=== PATIENT | female | born 1975 | race Caucasian/White ===

== ENCOUNTER 2017-04-15 14:55 | Emergency (ER) | payer OTHER ==
[2017-04-15 15:08] VITALS: PULSE 82; RESP 20; TEMP 98.6
[2017-04-15] MEDS ORDERED: ASPIRIN 81 MG CHEWABLE TAB PO ONE (15:30)
--- NOTE | 2017-04-15 15:37 | EDPHY ---
H & P Stated Complaint: 2 months of right side "lung pain" Time Seen by Provider: 04/15/17 15:16 HPI/ROS: This patient complains of "lung pain ". She describes location is "under the ribs under the right breast ". She states that she has had a chronic cough for 8 weeks and that the pain started sometime over the past 6 weeks or so. She describes this as achy in nature baseline 5/10 intensity and up to 9/10 intensity with a cough for a deep breath. She reports partial relief from ibuprofen and notes no other associated symptoms. She explains that initially the affected area of pain was relatively small but the area has increased in size over the past week or so. She has associated dyspnea and dyspnea on exertion. She also reports nasal congestion. Patient also complains of worsening of her chronic back pain in the thoracic area is concerned about potential failure of her lumbar fusion as she reports a feeling of buckling in the upper to mid lumbar area with bending forward and feeling of crepitance to the same area that is new for her. 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 She also has slight increase in her chronic pain in her thoracic spine and wants to check her T5-T11 fusion. ROS: No high fevers or chills. Mild fatigue. No other constitutional symptoms HEENT: Mild nasal congestion. No sore throat or ear pain. Pulmonary: As per HPI. No hemoptysis. Cardiovascular: No heart palpitations or lightheadedness. No leg swelling or pain. GI: She reports the right lower chest pain seems to increase when she over eats. However she denies any belly pain. No nausea vomiting or diarrhea. : Irregular menses that she attributes to her Mirena ring. No vaginal discharge or dysuria. Neuro: The patient reports a feeling of "nerve pain sharp in tingling at the area of thoracic back pain. This does not radiate from her back. No bowel or bladder incontinence. No extremity weakness. Complete review of symptoms is otherwise negative. Source: Patient Exam Limitations: No limitations - Personal History Current Tetanus Diphtheria and Acellular Pertussis (TDAP): Yes Tetanus Vaccine Date: WITHI 10 Y - Medical/Surgical History PMH: History of scoliosis with back fusion. Cholecystitis with cholecystectomy Chronic back pain T5 through T11 fusion by Dr. Washington in 2011 Hx Asthma: No Hx Chronic Respiratory Disease: No Hx Diabetes: No Hx Cardiac Disease: No Hx Renal Disease: No Hx Cirrhosis: No Hx Alcoholism: No Hx HIV/AIDS: No Hx Splenectomy or Spleen Trauma: No Other PMH: chronic pain due to a spinal fusion, appy, gallbladder, spinal fusion x2. 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 Eyes: Pupils equal and round no pallor or injection. ENT, Mouth: Mucous membranes moist. Respiratory: Bilateral mild wheezing with rhonchi at the right base. Cardiovascular: Regular rate and rhythm. No murmur gallop rub. No peripheral edema, calf swelling or tenderness Gastrointestinal: Abdomen is soft and nontender, no masses, bowel sounds normal. Back: Large midline surgical scar with midline thoracic tenderness that is mild. Patient also has lumbar tenderness around the L2-3 region in the midline. She has limited range of motion for flexion due to pain. Neurological: GCS 15. She maintains 5/5 strength all 4 extremities and no light touch sensory deficits upper lower extremities. No saddle anesthesia. Skin: Warm and dry, no rashes. Musculoskeletal: Neck is supple nontender. Extremities are symmetrical, full range of motion. Psychiatric: Mood and affect normal DIFFERENTIAL DIAGNOSIS: After history and physical exam differential diagnosis was considered for pulmonary embolism, pneumonia, bronchitis, ischemic heart disease, chronic thoracic back pain, hardware failure, degenerative disc disease , bony abnormality ,fracture Constitutional: Initial Vital Signs Temperature (C) 37 C 04/15/17 15:02 Heart Rate 82 04/15/17 15:02 Respiratory Rate 20 04/15/17 15:02 Blood Pressure 147/90 H 04/15/17 15:02 O2 Sat (%) 93 04/15/17 15:02 O2 Delivery Mode Room Air Allergies/Adverse Reactions: No Known Allergies Allergy (Verified 04/15/17 15:07) Home Medications: Medication Instructions Recorded Albuterol Hfa Anes Only [Proair 2 puffs IH Q4 PRN #1 mdi 04/15/17 Hfa Icu (*)] Azithromycin [Zithromax] 250 mg PO DAILY #6 tab 04/15/17 Fluticasone Hfa 220 Mcg [Flovent 2 puffs IH DAILY #1 mdi 04/15/17 220 MCG Hfa MDI (*)] Methocarbamol [Robaxin 750 mg (*)] 750 - 1,500 mg PO QID PRN #30 tab 04/15/17 Medical Decision Making - Diagnostics EKG Interpretation: 12 lead EKG performed at 3:37 p.m. reveals sinus rhythm at 76 Intervals: Normal throughout [place]: Normal throughout ST segments: Normal throughout Overall assessment sinus rhythm without acute ischemic abnormalities by my interpretation. For complete read please refer to trace master. Imaging Results: Thoracic spine x-rays: Read by the radiologist prior to my review also reviewed by myself-hardware in place without evidence of hardware failure. No acute bony abnormalities Two view chest x-ray: Read by radiologist prior to my review. No acute infiltrates. Mild airway disease. No other abnormalities appreciated. Two-view lumbar spine x-rays are reviewed with Dylon Rowell-radiologist while there is minimal anterior narrowing at L1 he feels this is within normal limits rather than representing a compression fracture. There is worsening of L2-3 spondylolisthesis when compared to prior lumbar spine film. She has multilevel degenerative disc disease as well. Imaging: Discussed imaging studies w/ auto claims adjuster Radiologist ED Course/Re-evaluation: Aspirin 324 IV, labs, EKG Review of her labs reveals normal CBC, chemistries, normal D-dimer and troponin. Discussion: Patient presents with clinical findings consistent with bronchitis associated with pleuritic sounding pain the likely represents pleurisy. We ruled out pulmonary embolism effectively with a negative D-dimer this patient with low risk of PE. Another possibility of her chest pain would be radiculopathy from a spinal sore spent think this is unlikely given the pleuritic nature of the pain. We ruled out pneumonia with normal CBC and chest x-ray. After review of her EKG and normal troponin I do not think she has ischemic cardiac disease contributing to her chest symptoms. Thoracic spine hardware is intact without acute abnormalities. Her spondylolisthesis at L2-3 has worsened and I suspect this is the cause of her feeling of crepitance in her low back and feeling of mild instability. Rather than pursuing further images of her lumbar spine this time will refer her to Dr. Washington-her neurosurgeon a performed her thoracic spine surgery. No evidence of cauda equina or other concerning acute findings. Will treat the patient with macrolide antibiotic, albuterol inhaler and given her long smoking history prior to quitting, Flovent steroid inhaler if her symptoms do not resolve on albuterol over the next week. A prescribed methocarbamol muscle relaxant to take in addition to NSAIDs and Tylenol for her back symptoms. - Data Points Laboratory Results: Laboratory Results 04/15/17 Unknown 04/15/17 Unknown Medications Given: Discontinued Medications Aspirin (Aspirin) 324 mg PO EDNOW ONE Stop: 04/15/17 15:31 Last Admin: 04/15/17 16:17 Dose: 324 mg Departure - Departure Disposition: Home, Routine, Self-Care Clinical Impression: Pleurisy, Spondylolisthesis at L2-L3 level Acute bronchitis Qualifiers: Bronchitis organism: unspecified organism Qualified Code(s): J20.9 - Acute bronchitis, unspecified Chronic thoracic back pain Qualifiers: Back pain laterality: midline Qualified Code(s): M54.6 - Pain in thoracic spine ; G89.29 - Other chronic pain; G89.29 - Other chronic pain Condition: Good Instructions: Pleurisy (ED), Acute Bronchitis (ED), Thoracic Pain (ED) Additional Instructions: Diagnoses: 1. Pleurisy 2. Acute bronchitis 3. Chronic thoracic back pain 4. Worsening spondylolisthesis at L2-3 Plan: Humidifier Albuterol inhaler with spacer for cough, wheeze or shortness of breath Zithromax antibiotic Flovent steroid inhaler-start this if your cough does not resolve over the next week with above treatment plan. Take this in addition to the albuterol and continue for 10-14 days. For back [id number] mg per 6 hours as needed for pain Methocarbamol muscle relaxant in addition if needed Tylenol in addition if needed. Call Dr. Washington to arrange follow-up appointment for further evaluation of your back. Referrals: Saurabh Washington MD [Medical Doctor] - As per Instructions Prescriptions: Albuterol Hfa Anes Only [Proair Hfa Icu (*)] 2 puffs IH Q4 PRN #1 mdi PRN Reason: Wheezing Azithromycin [Zithromax] 250 mg PO DAILY #6 tab Fluticasone Hfa 220 Mcg [Flovent 220 MCG Hfa MDI (*)] 2 puffs IH DAILY #1 mdi Methocarbamol [Robaxin 750 mg (*)] 750 - 1,500 mg PO QID PRN #30 tab PRN Reason: Muscle Spasms
--- NOTE | 2017-04-15 15:38 | CPEKG ---
Heart Rate: 76 RR Interval: 789 P-R Interval: 176 QRSD Interval: 94 QT Interval: 368 QTC Interval: 414 P [place]: 82 QRS [place]: 77 T Wave [place]: 43 EKG Severity - BORDERLINE ECG - EKG Impression: SINUS RHYTHM EKG Impression: PROBABLE LEFT ATRIAL ABNORMALITY Electronically Signed By: Maldonado Gandhi 15-Apr-2017 16:29:56
[2017-04-15 15:54] LABS: % IMMATURE GRANULYOCYTES 0.1 % (0.0-1.1); ABSOLUTE IMMATURE GRANULOCYTES 0.01 10^3/uL (0.00-0.10); ADD DIFF? NO; ADD MORPH? NO; ADD SCAN? NO; ATYPICAL LYMPHOCYTE FLAG 0 (0-99); FRAGMENT RBC FLAG 0 (0-99); HEMATOCRIT 41.1 % (38.0-47.0); HEMOGLOBIN 14.7 g/dL (12.6-16.3); LEFT SHIFT FLG 0 (0-99); LIPEMIA HEMOLYSIS FLAG 90 (0-99); MEAN CELL HEMOGLOBIN 31.5 pg (27.9-34.1); MEAN CELL HEMOGLOBIN CONCENTR. 35.8 g/dL (32.4-36.7); MEAN PLATELET VOLUME 9.5 fL (8.7-11.7); PLATELET CLUMPS FLAG 0 (0-99); PLATELET COUNT 249 10^3/uL (150-400); RED BLOOD CELL COUNT 4.67 10^6/uL (4.18-5.33); RED CELL DISTRIBUTION WIDTH 12.7 % (11.5-15.2)
[2017-04-15 16:15] LABS: ALANINE AMINOTRANSFERASE 32 IU/L (9-52); ALBUMIN 3.9 g/dL (3.5-5.0); ALKALINE PHOSPHATASE 79 IU/L (38-126); ANION GAP 11 mEq/L (8-16); ASPARTATE AMINOTRANSFERASE 19 IU/L (14-46); BILIRUBIN,TOTAL 0.4 mg/dL (0.1-1.4); CALCIUM 9.1 mg/dL (8.5-10.4); CARBON DIOXIDE 27 mEq/l (22-31); CHLORIDE 100 mEq/L (97-110); CREATININE 0.8 mg/dL (0.6-1.0); GLOMERULAR FILTRATION RATE > 60; GLUCOSE 92 mg/dL (70-100); POTASSIUM 3.9 mEq/L (3.5-5.2); SODIUM 138 mEq/L (134-144); TOTAL PROTEIN 6.4 g/dL (6.3-8.2)
[2017-04-15 16:28] LABS: TROPONIN I < 0.012 ng/mL (0.000-0.034)
[2017-04-15 17:43] VITALS: BP 147/105; O2SAT 95
== END 2017-04-15 17:40 | disposition home or self-care (01) ==
LOC: CED 14:55
DX: J20.9 Acute bronchitis, unspecified (principal); M43.16 Spondylolisthesis, lumbar region; M54.6 Pain in thoracic spine; G89.29 Other chronic pain; R09.1 Pleurisy; Z87.891 Personal history of nicotine dependence
CPT/HCPCS: 71020-PO; 72072-PO; 72100-PO; 80053-PO; 84484-PO; 85025-PO; 85378-PO

== ENCOUNTER 2017-09-04 12:10 | Emergency (ER) | payer OTHER ==
[2017-09-04] MEDS ORDERED: IBUPROFEN 800 MG TAB PO ONE (12:23)
--- NOTE | 2017-09-04 12:42 | EDPHY ---
H & P Time Seen by Provider: 09/04/17 12:17 HPI/ROS: CHIEF COMPLAINT: Left foot pain HISTORY OF PRESENT ILLNESS: 42-year-old female presents with left foot pain. She accidentally dropped a heavy object onto her left 1st toe this morning. Continues to have moderate 1st toe pain. Associated with tingling in toes. ROS: No weakness, bleeding, syncopal episode, other injury. Past Medical/Surgical History: Chronic LBP Appendectomy Cholecystectomy Smoking Status: Former smoker Physical Exam: Alert and oriented, pleasant Extremities: left first toe: tenderness and swelling over the distal phalanyx, subungual hematoma 20% Skin: intact Neuro: Motor and sensory intact Vascular: Capillary refill brisk distally Constitutional: Initial Vital Signs Heart Rate 75 09/04/17 12:17 Respiratory Rate 18 09/04/17 12:17 Blood Pressure 131/80 H 09/04/17 12:17 O2 Sat (%) 95 09/04/17 12:17 O2 Delivery Mode Room Air Allergies/Adverse Reactions: No Known Allergies Allergy (Verified 04/15/17 15:07) Home Medications: Medication Instructions Recorded Albuterol Hfa Anes Only [Proair 2 puffs IH Q4 PRN #1 mdi 04/15/17 Hfa Icu (*)] Azithromycin [Zithromax] 250 mg PO DAILY #6 tab 04/15/17 Fluticasone Hfa 220 Mcg [Flovent 2 puffs IH DAILY #1 mdi 04/15/17 220 MCG Hfa MDI (*)] Methocarbamol [Robaxin 750 mg (*)] 750 - 1,500 mg PO QID PRN #30 tab 04/15/17 Medical Decision Making - Diagnostics Imaging Results: X-ray independently reviewed by me reveals a nondisplaced fracture of the distal phalanx, 1st toe. ED Course/Re-evaluation: Nail trepination using electrocautery. Toes amarilys taped and post op shoe placed. - Data Points Medications Given: Discontinued Medications Ibuprofen (Motrin) 800 mg PO EDNOW ONE Stop: 09/04/17 12:24 Last Admin: 09/04/17 12:26 Dose: 800 mg Departure - Departure Disposition: Home, Routine, Self-Care Clinical Impression: Toe fracture, left Qualifiers: Encounter type: initial encounter Toe: great toe Fracture type: closed Phalanx : distal Fracture alignment: nondisplaced Qualified Code(s): S92.425A - Nondisplaced fracture of distal phalanx of left great toe, initial encounter for closed fracture Subungual hematoma of great toe of left foot Qualifiers: Encounter type: initial encounter Qualified Code(s): S90.212A - Contusion of left great toe with damage to nail, initial encounter Condition: Good Instructions: Subungual Hematoma (ED), Toe Fracture (ED) Additional Instructions: Ibuprofen 600 mg 3 times daily while the pain persists. Amarilys tape toe for comfort. Referrals: Preston Mendoza MD [Doctor of Podiatric Medicine] - As per Instructions (Call to make an appointment if you are not improving in 7-10 days.)
[2017-09-04 13:11] VITALS: BP 122/67
== END 2017-09-04 13:09 | disposition home or self-care (01) ==
LOC: CED 12:10
PROC: 0H9RXZZ Drainage of Toe Nail, External Approach (ICD-10-PCS; principal; 2017-09-04)
DX: S92.425A Nondisplaced fracture of distal phalanx of left great toe, initial encounter for closed fracture (principal); S90.212A Contusion of left great toe with damage to nail, initial encounter; Z87.891 Personal history of nicotine dependence; W20.8XXA Other cause of strike by thrown, projected or falling object, initial encounter
CPT/HCPCS: 73630-PO